=== PATIENT | male | born 1980 ===

== ENCOUNTER → 2018-02-15 21:13 | Outpatient (REF) | payer OTHER, SELFPAY ==
[2018-02-15 21:16] LABS: Bacteria Urine None Seen; RBC Urine None Seen (0-5/HPF); WBC Urine None Seen (0-5/HPF)
[2018-02-15 22:38] LABS: Add Manual Diff / Slide Review NO; Basophils Percent Auto 0.4 % (0-2); Hematocrit 45.1 % (41-53); Hemoglobin 15.2 g/dL (13.5-17.5); Lymphocytes Percent Auto 29.7 % (25-40); Mean Corpuscular HGB Conc 33.7 % (30-36); Monocytes Percent Auto 5.9 % (3-14); Neutrophils Absolute Auto 7300 /uL (1500-7000); Platelet Count 201 X10^3/uL (150-400); Red Blood Cell Count 5.24 X10^6/uL (4.5-5.9); White Blood Cell Count 11.8 X10^3/uL (4.5-11.0)
[2018-02-15 22:54] LABS: Hemoglobin A1C% w Est Avg Glu 6.2 % (4.0-6.0)
[2018-02-15 23:06] LABS: Appearance Urine UA CLEAR; Bilirubin Urine UA NEGATIVE (NEGATIVE); Color Urine UA YELLOW; Glucose Urine UA NEGATIVE (Negative); Ketones Urine UA NEGATIVE (NEGATIVE); Leukocyte Esterase Urine UA NEGATIVE (NEGATIVE); Nitrite Urine UA NEGATIVE (Negative); Occult Blood Urine UA NEGATIVE (Negative); Protein Urine UA NEGATIVE (Negative); Specific Gravity Urine UA <=1.005 (1.000-1.035); Urobilinogen Urine UA 0.2 E.U./dL (0.2)
[2018-02-15 23:21] LABS: Urine Comments Microscopic Normal
[2018-02-15 23:39] LABS: HEMOLYSIS < 15 (0-50)
[2018-02-15 23:46] LABS: Alanine Aminotransferase 59 IU/L (21-72); Albumin 4.7 g/dL (3.5-5.0); Albumin Globulin Ratio 1.5 (1.0-2.8); Alkaline Phosphatase 59 U/L (38-126); Aspartate Aminotransferase 33 IU/L (17-59); Bilirubin Total 0.8 mg/dL (0.2-1.3); Blood Urea Nitrogen 17 mg/dL (9-20); Calcium 9.4 mg/dL (8.4-10.2); Carbon Dioxide 24 mmol/L (22-32); Chloride 99 mmol/L (98-107); Cholesterol 200 mg/dL (140-199); Estimated Glomerular Filt Rate > 60.0 mL/min (>60); Globulin 3.2 g/dL (1.7-4.1); Glucose 148 mg/dL (70-100); HDL Cholesterol 35 mg/dL (40-60); LDL Cholesterol Calculated 114 mg/dL (<100); Potassium 3.9 mmol/L (3.4-5.1); Sodium 138 mmol/L (137-145); Total Protein 7.9 g/dL (6.3-8.2); Triglycerides 254 mg/dL (35-150)
[2018-02-16 00:16] LABS: TSH w/ Reflex to FT4 2.34 uIU/mL (0.47-4.68)
[2018-02-16 02:12] LABS: Luteinizing Hormone 3.86 mIU/mL
[2018-02-17 15:14] LABS: PSA Total 0.35 ng/mL (< 4.01)
[2018-02-17 15:28] LABS: Dehydroepiandrosterone Sulfate 194 mcg/dL (106-464)
[2018-02-17 15:42] LABS: Estradiol 31 pg/mL (< 40)
[2018-02-17 15:43] LABS: Progesterone < 0.5 ng/mL (< 1.4); Sex Hormone Binding Globulin 24 nmol/L (10-50)
[2018-02-19 12:42] LABS: Z- Score (Male) -0.5 SD (-2.0 - +2.0)
[2018-02-20 18:47] LABS: Testosterone Free 44.8 pg/mL (35.0-155.0); Testosterone Total 269 ng/dL (250-1100)
== END ==
LOC: LAB 21:13
PROVIDERS: Visit Provider Family Medicine
DX: Z00.00 Encounter for general adult medical examination without abnormal findings (principal); Z13.89 Encounter for screening for other disorder; I10 Essential (primary) hypertension; E03.9 Hypothyroidism, unspecified
CPT/HCPCS: 36415; 80053; 80061; 81001; 82627; 82670; 82728; 83002; 83036; 84144; 84153; 84154; 84270; 84305; 84402; 84403; 84443; 85025

== ENCOUNTER → 2018-03-05 21:20 | Outpatient (REF) | payer OTHER, SELFPAY | LOC: LAB 21:20 | PROVIDERS: Visit Provider Family Medicine | DX: E83.110 Hereditary hemochromatosis (principal) | CPT/HCPCS: 36415; 81256; 82728 ==

== ENCOUNTER → 2018-04-12 21:26 | Outpatient (REF) | payer OTHER, SELFPAY ==
[2018-04-12 21:55] LABS: Add Manual Diff / Slide Review NO; Basophils Absolute Auto 100 /uL (0-100); Basophils Percent Auto 0.5 % (0-2); Eosinophils Absolute Auto 0 /uL (0-450); Eosinophils Percent Auto 0.4 % (2-4); Hemoglobin 14.7 g/dL (13.5-17.5); Lymphocytes Absolute Auto 2600 /uL (1100-4500); Lymphocytes Percent Auto 26.8 % (25-40); Mean Corpuscular HGB Conc 33.4 % (30-36); Mean Corpuscular Hemoglobin 28.8 PG (26-34); Mean Corpuscular Volume 86.1 fL (80-100); Monocytes Absolute Auto 500 /uL (0-900); Monocytes Percent Auto 5.5 % (3-14); Neutrophils Absolute Auto 6500 /uL (1500-7000); Neutrophils Percent Auto 66.8 % (50-75); Platelet Count 177 X10^3/uL (150-400); Red Blood Cell Count 5.11 X10^6/uL (4.5-5.9); Red Cell Distribution Width 12.9 % (11.6-14.8); White Blood Cell Count 9.7 X10^3/uL (4.5-11.0)
== END ==
LOC: LAB 21:26
PROVIDERS: Visit Provider Family Medicine
DX: R73.03 Prediabetes (principal); E83.119 Hemochromatosis, unspecified
CPT/HCPCS: 36415; 82728; 85025

== ENCOUNTER → 2018-04-20 23:16 | Outpatient (REF) | payer OTHER, SELFPAY ==
[2018-04-21 02:19] LABS: Alanine Aminotransferase 60 IU/L (21-72); Albumin 4.7 g/dL (3.5-5.0); Albumin Globulin Ratio 1.5 (1.0-2.8); Alkaline Phosphatase 59 U/L (38-126); Aspartate Aminotransferase 28 IU/L (17-59); Bilirubin Total 0.7 mg/dL (0.2-1.3); Blood Urea Nitrogen 15 mg/dL (9-20); Calcium 9.5 mg/dL (8.4-10.2); Carbon Dioxide 25 mmol/L (22-32); Chloride 101 mmol/L (98-107); Estimated Glomerular Filt Rate > 60.0 mL/min (>60); Globulin 3.1 g/dL (1.7-4.1); Glucose 122 mg/dL (70-100); HEMOLYSIS < 15 (0-50); Potassium 4.2 mmol/L (3.4-5.1); Sodium 139 mmol/L (137-145); Total Protein 7.8 g/dL (6.3-8.2)
== END ==
LOC: LAB 23:16
PROVIDERS: Visit Provider Family Medicine
DX: E83.119 Hemochromatosis, unspecified (principal); E88.9 Metabolic disorder, unspecified; R73.03 Prediabetes
CPT/HCPCS: 36415; 80053; 82728